=== PATIENT | female | born 1995 | race American Indian/Alaskan Native ===

== ENCOUNTER 2016-12-28 15:38 | Observation (INO) | payer MEDICAID ==
--- NOTE | 2016-12-28 16:29 | Ultrasound Report ---
Limited OB ultrasound. Findings: A single intrauterine is identified. No motion or cardiac activity is identified. The fetus is in cephalic presentation. Impression: These findings are consistent with demise. Comment: These findings were given by telephone to the nurseRadha in labor and delivery at 4:25 PM on January 28, 2017.
[2016-12-28] MEDS ORDERED: BRETHINE SUB-Q PRN (17:30)
[2016-12-28] MEDS ORDERED: STADOL IV PRN (17:30)
[2016-12-28] MEDS ORDERED: SUBLIMAZE IV PRN (17:30)
[2016-12-28] MEDS ORDERED: XYLOCAINE 2% INFILTRATI ONE (17:30)
[2016-12-28] MEDS ORDERED: MINERAL OIL PO PRN (17:30)
[2016-12-28] MEDS ORDERED: BRETHINE IVP PRN (17:30)
[2016-12-28] MEDS ORDERED: ePHEDrine SULFATE IV PRN ×2 (17:30→21:28)
--- NOTE | 2016-12-28 17:47 | History and Physical Report ---
History of Present Illness Date of examination: 12/28/16 Date of admission: 12/28/2016 Chief complaint: IUFD @32.5 weeks History of present illness: 21 yo at 32.5 weeks gestation presented to office today for routine OB care. Unable to auscultate FHT or locate FHB on ultrasound. care at [facility] since 7.4 weeks. Was co managed with [facility] for BMI> 39 and elevate BP. Course complicated by Rh negative status- rhogam @ 28 weeks at [facility] on 12/01 and +THC screen on 07/05/2016. 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 denies: smoking, alcohol abuse, prescription drug abuse , IV drug use - Obstetrical History Expected Date of Delivery: 02/17/17 Actual Gestation: 32 Week(s) 5 Day(s) : 2 Para: 1 Hx # Term Pregnancies: 1 Number of Pregnancies: 0 Spontaneous Abortions: 0 Induced : 0 Number of Living Children: 1 Medications and Allergies Allergies Allergy/AdvReac Type Severity Reaction Status Date / Time No Known Allergies Allergy Verified 08/15/13 00:29 Home Medications Medication Instructions Recorded Confirmed Last Taken Type Ibuprofen [Motrin] 800 mg PO QAM 08/15/13 08/15/13 08/14/13 History 800 Active Meds: Active Medications Butorphanol Tartrate (Stadol) 2 mg IV Q2H PRN PRN Reason: Pain , Severe (7-10) Ephedrine Sulfate (Ephedrine Sulfate) 10 mg IV Q2M PRN PRN Reason: Hypotension Stop: 12/28/16 17:35 Fentanyl (Sublimaze) 100 mcg IV Q2H PRN PRN Reason: Labor Pain Lactated Ringer's (Lactated Ringers) 1,000 mls @ 125 mls/hr IV DIRECT JEFFREY Oxytocin/Sodium Chloride (Pitocin/Ns 20 Unit/1000ml Drip) 20 units in 1,000 mls @ 125 mls/hr IV DIRECT JEFFREY Lidocaine (Xylocaine 2%) 20 ml INFILTRATI ONCE ONE Stop: 12/28/16 17:31 Mineral Oil (Mineral Oil) 30 ml PO QHS PRN PRN Reason: Constipation Misoprostol (Cytotec) 100 mcg VAGINAL Q4H JEFFREY Oxycodone/Acetaminophen (Percocet 5/325) 2 tab PO Q4H PRN PRN Reason: Pain, Moderate (4-6) Terbutaline Sulfate (Brethine) 0.25 mg SUB-Q ONCE PRN PRN Reason: Hyperstimulation/Hypertonicity Stop: 12/28/16 17:31 Terbutaline Sulfate (Brethine) 0.25 mg IVP ONCE PRN PRN Reason: Hyperstimulation/Hypertonicity Stop: 12/28/16 17:31 Review of Systems All systems: negative - Vital Signs Vital signs: Vital Signs Pulse BP 98 H 136/74 12/28/16 16:42 12/28/16 16:42 Temp Pulse Resp BP Pulse Ox 98.5 F 98 H 18 136/74 12/28/16 16:44 12/28/16 16:42 12/28/16 16:44 12/28/16 16:44 - Physical Exam Cardiovascular: Regular rate Lungs: Positive: Normal air movement Vagina: Positive: normal moisture Uterus: Positive: enlarged Extremities: Positive: normal Deep Tendon Reflex Grade: Normal +2 - Obstetrical FHR comments: IUFD Uterine Contraction Frequency (min): none Results All other labs normal. Assessment and Plan A: 32.5 week demise no contractions at this time P: Admit to L&D for IOL Contraction monitoring Cytotec induction Pain medication/Epidural as needed. [employer] bereavement box as available
[2016-12-28] MEDS: PERCOCET 5/325 PO PRN (17:59)
[2016-12-28] MEDS ORDERED: PITOCin/NS 20 UNIT/1000ML DRIP 20 UNITS/1,000 ML BAG IV SCH (18:00)
[2016-12-28] MEDS ORDERED: CYTOTEC VAGINAL SCH (18:00)
[2016-12-28 19:00] LABS: Hematocrit 30.1 % (30.3-42.9); Mean Corpuscular HGB Conc 33 % (30-34); Mean Corpuscular Hemoglobin 28 pg (28-32); Mean Corpuscular Volume 85 fl (79-97); Platelet Count 229 K/mm3 (140-440); Red Blood Count 3.54 M/mm3 (3.65-5.03); Red Cell Distribution Width 13.3 % (13.2-15.2); White Blood Count 10.2 K/mm3 (4.5-11.0)
[2016-12-28] MEDS: LACTATED RINGERS 1,000 ML IV SCH (21:19)
[2016-12-28] MEDS: CYTOTEC VG SCH (21:20)
[2016-12-28] MEDS ORDERED: ePHEDrine SULFATE ONE (21:24)
[2016-12-28] MEDS ORDERED: NARCAN 2 MG/2 ML IV PRN (21:28)
--- NOTE | 2016-12-28 21:28 | Anesthesia Consultation ---
Anesthesia Consult and Med Hx Date of service: 12/28/16 - Airway Anesthetic Teeth Evaluation: Good ROM Head & Neck: Adequate Mental/Hyoid Distance: Adequate Mallampati Class: Class II Intubation Access Assessment: Good - Pulmonary Exam CTA: Yes - Cardiac Exam Cardiac Exam: No Murmur - Pre-Operative Health Status ASA Pre-Surgery Classification: ASA2 Proposed Anesthetic Plan: Epidural - Pulmonary Hx Smoking: No Hx Asthma: No COPD: No Hx Pneumonia: No Hx Sleep Apnea: No - Cardiovascular System Hx Hypertension: Yes (off and on in beginning of preg but never dx) Hx Coronary Artery Disease: No Hx Heart Attack/AMI: No Hx Angina: No Hx Percutaneous Transluminal Coronary Angioplasty (PTCA): No Hx Pacemaker: No Hx Internal Defibrillator: No Hx Valvular Heart Disease: No Hx Heart Murmur: No Hx Peripheral Vascular Disease: No - Central Nervous System Hx Seizures: No CVA: Yes Hx Psychiatric Problems: Yes (anxiety) - Endocrine Hx Renal Disease: No Hx End Stage Renal Disease: No Hx Hypothyroidism: No Hx Hyperthyroidism: No - Hematic Hx Anemia: No Hx Sickle Cell Disease: No - Other Systems Hx Alcohol Use: No Hx Cancer: No
[2016-12-28] MEDS: fentaNYL-BUPIV 2 MCG/ML-0.125% 200 MCG/100 ML BAG EPIDURAL SCH (22:53)
[2016-12-29] MEDS: CYTOTEC VG SCH ×2 (01:30→05:07)
[2016-12-29 01:57] LABS: Urine Drugs of Abuse Note Disclamer
[2016-12-29] MEDS: LACTATED RINGERS 1,000 ML IV SCH (02:19)
[2016-12-29] MEDS ORDERED: PITOCin/NS 30 UNIT/500ML 30 UNITS/500 ML BAG IV SCH (08:00)
[2016-12-29] MEDS: fentaNYL-BUPIV 2 MCG/ML-0.125% 200 MCG/100 ML BAG EPIDURAL SCH (08:15)
[2016-12-29] MEDS ORDERED: XYLOCAINE MPF 2% ONE (09:33)
[2016-12-29] MEDS ORDERED: MOTRIN PO SCH (10:00)
--- NOTE | 2016-12-29 10:24 | Procedure Note ---
OB Delivery Note - Delivery Date of Delivery: 12/29/16 (0947) Surgeon: CHICO BREWER Estimated blood loss: 200cc - Vaginal Delivery position: OA Delivery induction: misoprostol Delivery augmentation: pitocin Delivery monitor: external uterine Route of delivery: Delivery placenta: spontaneous Delivery cord: 3 umbilical vessels Episiotomy: none Delivery laceration: none Delivery comments: Baby boy Sachi was delivered still on 12/29/2016 @ 0947 after found to be without heart tones in the office yesterday afternoon. Cord was clamped and cut , baby was swaddled and placed in mom's arms. Placenta was delivered intact with jack side presenting at 0958. Sachi weighted 4lb and 6oz with Apgars of 0/0. Mom was supported by sister and friend during the delivery and all were left spending time with baby. - A at 1 minute: 0 at 5 minutes: 0 Infant Gender: Male
[2016-12-29] MEDS ORDERED: BENADRYL PO PRN (10:25)
[2016-12-29] MEDS ORDERED: DULCOLAX PR PRN (10:25)
[2016-12-29] MEDS ORDERED: PHENERGAN PR PRN (10:25)
[2016-12-29] MEDS ORDERED: TYLENOL PO PRN (10:25)
[2016-12-29] MEDS ORDERED: NORCO 5/325 PO PRN (10:25)
[2016-12-29] MEDS ORDERED: ANUCORT-HC PR PRN (10:25)
[2016-12-29] MEDS ORDERED: ZOFRAN IV PRN (10:25)
[2016-12-29] MEDS ORDERED: DERMOPLAST TP PRN (10:25)
[2016-12-29] MEDS ORDERED: PHENERGAN PO PRN (10:25)
[2016-12-29] MEDS ORDERED: TUCKS PAD TP PRN (10:25)
[2016-12-29] MEDS ORDERED: MILK OF MAGNESIA PO PRN (10:25)
[2016-12-29] MEDS ORDERED: LANSINOH TP PRN (10:25)
[2016-12-29] MEDS ORDERED: SODIUM CHLORIDE FLUSH SYRINGE 10 ML IV NR (11:00)
[2016-12-29 23:12] LABS: Hematocrit 29.6 % (30.3-42.9); Hemoglobin 9.7 gm/dl (10.1-14.3)
[2016-12-30] MEDS: COLACE PO SCH ×3 (01:41→22:00)
[2016-12-30] MEDS: MOTRIN PO SCH ×4 (01:42→16:57)
[2016-12-30] MEDS: PRENATAL VITAMIN PO SCH (10:16)
[2016-12-30] MEDS: SENOKOT S PO SCH ×2 (12:00→22:00)
--- NOTE | 2016-12-30 13:05 | Progress Note ---
Subjective Date of service: 12/30/16 Interval history: No anesthetic related complaints. Epidural has been removed. Objective - Constitutional Vitals: Vital Signs - 12hr 12/30/16 12/30/16 12/30/16 01:42 04:50 08:00 Temperature 98.6 F 98.4 F Pulse Rate [ 71 66 Left Radial] Respiratory 18 20 18 Rate Blood Pressure 120/50 127/77 [Left Arm] 12/30/16 12:00 Temperature 98.6 F Pulse Rate [ 71 Left Radial] Respiratory 18 Rate Blood Pressure 138/86 [Left Arm] - Labs CBC & Chem 7: 12/29/16 22:42 Labs: Abnormal lab results 12/29/16 Range/Units 22:42 Hgb 9.7 L (10.1-14.3) gm/dl Hct 29.6 L (30.3-42.9) %
[2016-12-30] MEDS: PERCOCET 5/325 PO PRN (14:20)
[2016-12-31] MEDS: MOTRIN PO SCH (02:00)
[2016-12-31] MEDS: PERCOCET 5/325 PO PRN (10:58)
[2016-12-31] MEDS: COLACE PO SCH (11:00)
[2016-12-31] MEDS: PRENATAL VITAMIN PO SCH (11:00)
--- NOTE | 2016-12-31 13:55 | Progress Note ---
Assessment and Plan A. 21 y/o [id number] admitted for IOL s/p demise Co- managed with [facility] for maternal morbid obesity and HTN (no meds) Insufficient PNC and MJ use Rh Neg blood type: Rhogam not indicated b/c pt had dose < 12 wk ago Plans Nexplanon for contraception Normal pp course since del. Pt appears calm and without signs of anxiety or grief P DC home PT to f/u 6 wk pp: pt counseled to call for sooner apt if she feels concerned re physical or emotional coping Subjective - Subjective Date of service: 12/31/16 (PP Day #2: normal course) Patient reports: appetite normal, voiding normally, pain well controlled, ambulating normally : other ( demise: pt counseled re managment of milk coming in.) Objective - Vital Signs Latest vital signs: Vital Signs Temp Pulse Resp BP 12/31/16 11:55 98.6 F 83 16 139/86 12/31/16 08:07 98.3 F 72 16 151/95 12/30/16 23:55 98.4 F 80 18 146/86 12/30/16 20:50 98.0 F 80 18 128/74 12/30/16 16:41 97.8 F 74 18 133/82 Intake and Output 12/30/16 12/31/16 12/31/16 22:59 06:59 14:59 Intake Total 960 360 Balance 960 360 Intake: Oral 960 360 Other: Total, Intake Amount 240 120 # Voids Void 1 1 - Exam Breasts: Present: deferred Cardiovascular: Present: Regular rate Lungs: Present: Clear to auscultation Abdomen: Present: normal appearance, soft Uterus: Present: normal, firm, fundal height below umbilicus Extremities: Present: normal
--- NOTE | 2016-12-31 14:02 | Discharge Summary ---
Providers - Providers Date of Admission: 12/29/16 21:13 Date of discharge: 12/31/16 Attending physician: RAGHAV BUSBY MD Primary care physician: RAGHAV BUSBY MD Hospitalization Reason for admission: active labor, IUP - , induction of labor, IUFD Delivery: Episiotomy: none Laceration: none Other procedures: none complications: none baby: male ( demise at 32.5 wk) Condition at discharge: Good Disposition: DISCHARGED TO HOME OR SELFCARE Plan - Provider Discharge Summary Activity: no sex for 6 weeks, no heavy lifting 4 weeks, no strenuous exercise Diet: routine Instructions: routine Additional instructions: [] Smoking cessation referral if applicable(refer to patient education folder for contact #) [] Refer to [facility] Booklet Call your doctor immediately for: * Fever > 100.5 * Heavy vaginal bleeding ( >1 pad per hour) * Severe persistent headache * Shortness of breath * Reddened, hot, painful area to leg or breast * Drainage or odor from incision. * Keep incision clean and dry at all times and follow doctor's instructions regarding bathing/showering - Follow up plan Follow up: RAGHAV OCONNELL MD [Primary Care Provider] - NUSRAT BENDER CNM [Advanced Practice Nurse] - 6 Weeks
[2016-12-31 15:06] VITALS: BP 135/76
== END 2016-12-31 16:23 | disposition home or self-care (01) ==
LOC: TRG 15:38 → LD 15:40 → TRG 12-29 21:12 → LD 12-29 21:13 → OB 12-29 21:20
PROVIDERS: ADMIT Obstetrics & Gynecology; ATTEND Obstetrics & Gynecology
DX: O46.93 Antepartum hemorrhage, unspecified, third trimester (principal); O99.214 Obesity complicating childbirth; O16.3 Unspecified maternal hypertension, third trimester; O26.893 Other specified pregnancy related conditions, third trimester; R51 Headache; R06.02 Shortness of breath; Z3A.32 32 weeks gestation of pregnancy; Z83.3 Family history of diabetes mellitus; Z82.49 Family history of ischemic heart disease and other diseases of the circulatory system; Z81.8 Family history of other mental and behavioral disorders
CPT/HCPCS: 36415; 36430; 59200; 76815; 80307; 85014; 85018; 85027; 85461; 86850; 86870; 86900; 86901; 88307; 96360; 96361; G0378; J2590; J2790; J7120; J0595

== ENCOUNTER 2018-07-17 00:34 | Outpatient (CLI) | payer MEDICAID, OTHER ==
[2018-07-17 01:03] VITALS: BP 119/68
[2018-07-17 03:12] LABS: Basophils % (Auto) 0.2 % (0.0-1.8); Eosinophils % (Auto) 0.4 % (0.0-4.3); Hematocrit 32.2 % (30.3-42.9); Hemoglobin 10.7 gm/dl (10.1-14.3); Lymphocytes # (Auto) 2.7 K/mm3 (1.2-5.4); Lymphocytes % (Auto) 24.1 % (13.4-35.0); Mean Corpuscular HGB Conc 33 % (30-34); Mean Corpuscular Hemoglobin 28 pg (28-32); Mean Corpuscular Volume 85 fl (79-97); Monocytes # (Auto) 0.7 K/mm3 (0.0-0.8); Monocytes % (Auto) 6.4 % (0.0-7.3); Platelet Count 246 K/mm3 (140-440); Red Blood Count 3.78 M/mm3 (3.65-5.03); Red Cell Distribution Width 13.1 % (13.2-15.2)
[2018-07-17 03:37] LABS: Hepatitis C Virus Antibody Non-Reactive (NonReactive)
[2018-07-17 04:04] LABS: Rubella IgG Antibody Immune (Immune)
== END 2018-07-17 02:54 | disposition home or self-care (01) ==
LOC: TRG 00:34
PROVIDERS: ATTEND Obstetrics & Gynecology
DX: O47.03 False labor before 37 completed weeks of gestation, third trimester (principal); Z3A.33 33 weeks gestation of pregnancy
CPT/HCPCS: 36415; 59025; 85025; 85660; 86592; 86706; 86762; 86803; 87806

== ENCOUNTER 2020-09-19 01:51 | Outpatient (CLI) | payer MEDICAID ==
[2020-09-19 02:23] VITALS: BP 112/60
[2020-09-19] MEDS ORDERED: LACTATED RINGERS 1,000 ML IV ONE (02:34)
[2020-09-19 03:17] LABS: Bacteria,Urine 1+ /HPF (Negative); Bilirubin,Urine NEG (Negative); Blood,Urine MOD (Negative); Color,Urine Straw (Yellow); Mucus,Urine FEW /HPF; Urobilinogen,Urine < 2.0 mg/dL (<2.0)
== END 2020-09-19 05:55 | disposition home or self-care (01) ==
LOC: TRG 01:51 → APU 01:54 → TRG 05:55
PROVIDERS: ATTEND Obstetrics & Gynecology
DX: O26.892 Other specified pregnancy related conditions, second trimester (principal); O99.332 Smoking (tobacco) complicating pregnancy, second trimester; F17.200 Nicotine dependence, unspecified, uncomplicated; Z3A.27 27 weeks gestation of pregnancy
CPT/HCPCS: 59025; 81001; 96360; J7120

== ENCOUNTER 2020-10-28 12:02 | Inpatient (IN) | payer MEDICAID, OTHER ==
[2020-10-28 13:36] LABS: Hematocrit 32.6 % (30.3-42.9); Hemoglobin 10.9 gm/dl (10.1-14.3); Mean Corpuscular HGB Conc 34 % (30-34); Mean Corpuscular Volume 85 fl (79-97); Platelet Count 274 K/mm3 (140-440); Red Blood Count 3.84 M/mm3 (3.65-5.03)
[2020-10-28] MEDS ORDERED: TERBUTALINE 1 MG/1 ML INJ SUB-Q PRN (13:59)
[2020-10-28] MEDS ORDERED: BUTORPHANOL 2 MG/1 ML INJ IV PRN (13:59)
[2020-10-28] MEDS ORDERED: MINERAL OIL 30 ML ORAL LIQD PO PRN (13:59)
[2020-10-28] MEDS ORDERED: ONDANSETRON 4 MG/2 ML INJ IV PRN ×2 (13:59→19:52)
[2020-10-28] MEDS ORDERED: LIDOCAINE (2%) 20 MG/1 ML VIAL 20 ML MDV INFILTRATI ONE (13:59)
[2020-10-28] MEDS ORDERED: ePHEDrine SULFATE 50 MG/1 ML INJ IV PRN ×2 (13:59→17:51)
[2020-10-28] MEDS ORDERED: AMPICILLIN/NS 2 GM/100 ML 2 GM/100 ML BAG IV ONE (14:00)
[2020-10-28] MEDS ORDERED: OXYTOCIN DRIP 30 UNITS/500 ML BAG IV SCH ×3 (14:00→15:00)
[2020-10-28] MEDS ORDERED: LACTATED RINGERS 1,000 ML ONE (14:05)
[2020-10-28] MEDS: LACTATED RINGERS 1,000 ML IV SCH ×2 (14:14→17:52)
[2020-10-28 14:24] LABS: Bacteria,Urine 1+ /HPF (Negative); Bilirubin,Urine NEG (Negative); Blood,Urine SM (Negative); Color,Urine Yellow (Yellow); Hyaline Casts,Urine 1 /LPF; Mucus,Urine FEW /HPF; Protein,Urine <15 mg/dL mg/dL (Negative); Urobilinogen,Urine < 2.0 mg/dL (<2.0)
[2020-10-28 14:25] LABS: Amphetamine Screen,Urine PRESUMPTIVE NEGATIVE; Benzodiazepines Screen,Urine PRESUMPTIVE NEGATIVE; Cannabinoid Screen,Urine PRESUMPTIVE POSITIVE; Cocaine Screen,Urine PRESUMPTIVE NEGATIVE; Methadone Screen,Urine PRESUMPTIVE NEGATIVE; Opiate Screen,Urine PRESUMPTIVE NEGATIVE
--- NOTE | 2020-10-28 17:50 | Anesthesia Consultation ---
Anesthesia Consult and Med Hx Date of service: 10/28/20 - Airway Anesthetic Teeth Evaluation: Poor ROM Head & Neck: Adequate Mental/Hyoid Distance: Adequate Mallampati Class: Class II Intubation Access Assessment: Probably Good - Pulmonary Exam CTA: Yes - Cardiac Exam Cardiac Exam: RRR - Pre-Operative Health Status ASA Pre-Surgery Classification: ASA2 Proposed Anesthetic Plan: Epidural - Pulmonary Hx Smoking: Yes Hx Asthma: Yes (as a child) Hx Respiratory Symptoms: No SOB: No COPD: No Home Oxygen Therapy: No Hx Pneumonia: No Hx Sleep Apnea: No - Cardiovascular System Hx Hypertension: Yes (PIH 2012 & 2018) Hx Coronary Artery Disease: No Hx Heart Attack/AMI: No Hx Angina: No Hx Percutaneous Transluminal Coronary Angioplasty (PTCA): No Hx Cardia Arrhythmia: No Hx Pacemaker: No Hx Internal Defibrillator: No Hx Valvular Heart Disease: No Hx Heart Murmur: No Hx Peripheral Vascular Disease: No - Central Nervous System Hx Neuromuscular Disorder: No Hx Seizures: No CVA: Yes Hx Back Pain: No Hx Psychiatric Problems: No - Gastrointestinal Hx Ulcer: No Hx Gastroesophageal Reflux Disease: Yes - Endocrine Hx Renal Disease: No Hx End Stage Renal Disease: No Hx Cirrhosis: No Hx Liver Disease: No Hx Insulin Dependent Diabetes: No Hx Non-Insulin Dependent Diabetes: No Hx Thyroid Disease: No Hx Hypothyroidism: No Hx Hyperthyroidism: No - Hematic Hx Anemia: No Hx Sickle Cell Disease: No - Other Systems Hx Alcohol Use: No Hx Substance Use: No Hx Cancer: No Hx Obesity: Yes
[2020-10-28] MEDS ORDERED: NALOXONE 2 MG/2 ML INJ IV PRN (17:51)
[2020-10-28] MEDS ORDERED: fentaNYL-BUPIV 2 MCG/ML-0.125% 200 MCG/100 ML BAG EPIDURAL SCH (18:00)
[2020-10-28] MEDS ORDERED: AMPICILLIN/NS 1 GM/50 ML 1 GM/50 ML BAG IV ONE (18:00)
--- NOTE | 2020-10-28 18:08 | History and Physical Report ---
History of Present Illness Date of examination: 10/28/20 Date of admission: 10/28/20 13:59 Chief complaint: c/o uc with SROM @ 11:24 am. History of present illness: 24 y/o AA female @ 37.1 wks presented to [facility] ob triage with c/o uc and srom at 11:24 this am. Pt states she [facility] but didn't go back. She has a medical hx of asthma. Last attack was "years ago". OB hx of PIH in 2012 and 2018 and reports 1 stillbirth @ 8 mos in 2017. Chlamydia tx'd in 2012. Surgical hx of tonsillectomy and adenoidectomy. Family hx of DM. GBS is unknown. No records are available. Pt was assessed and admitted to L&D for delivery. Past History Past Medical History: asthma, hypertension, other (stillbirth @8 mos) Past Surgical History: tonsillectomy, other (adenoidectomy) [facility] [employer] History: chlamydia Family/Genetic History: diabetes Social history: single - Obstetrical History Expected Date of Delivery: 11/17/20 Actual Gestation: 37 Week(s) 1 Day(s) : 5 Para: 2 Hx # Term Pregnancies: 2 Number of Pregnancies: 1 Spontaneous Abortions: 1 Induced : 0 Number of Living Children: 2 Medications and Allergies Allergies Allergy/AdvReac Type Severity Reaction Status Date / Time No Known Allergies Allergy Verified 08/24/18 21:39 Home Medications Medication Instructions Recorded Confirmed Last Taken Type No Known Home Medications [No 10/28/20 10/28/20 Unknown History Reported Home Medications] Active Meds: Active Medications Butorphanol Tartrate (Butorphanol 2 Mg/1 Ml Inj) 2 mg IV Q2H PRN PRN Reason: Pain , Severe (7-10) Ephedrine Sulfate (Ephedrine Sulfate 50 Mg/1 Ml Inj) 10 mg IV Q2M PRN PRN Reason: Hypotension Ephedrine Sulfate (Ephedrine Sulfate 50 Mg/1 Ml Inj) 10 mg IV Q2M PRN PRN Reason: Hypotension Ampicillin Sodium (Ampicillin/Ns 1 Gm/50 Ml) 1 gm in 50 mls @ 100 mls/hr IV Q4HR ONE; Protocol Stop: 10/28/20 18:29 Lactated Ringer's (Lactated Ringers) 1,000 mls @ 125 mls/hr IV DIRECT JEFFREY Last Admin: 10/28/20 17:52 Dose: 999 mls/hr Documented by: Oxytocin/Sodium Chloride (Pitocin/Ns 30 Unit/500ml) 30 units in 500 mls @ 40 mls/hr IV TITR JEFFREY; Protocol Oxytocin/Sodium Chloride (Pitocin/Ns 30 Unit/500ml) 30 units in 500 mls @ 2 mls/hr IV TITR JEFFREY; Protocol Last Titration: 10/28/20 17:15 Dose: 8 mls/hr, 8 mls/hr Documented by: Fentanyl/Bupivacaine/Sodium Chlor (Fentanyl-Bupiv 2 Mcg/Ml-0.125%) 200 mcg in 100 mls @ 12 mls/hr EPIDURAL TITR JEFFREY; Protocol Mineral Oil (Mineral Oil 30 Ml Oral Liqd) 30 ml PO QHS PRN PRN Reason: Constipation Naloxone HCl (Naloxone 2 Mg/2 Ml Inj) 0.2 mg IV Q5M PRN PRN Reason: Respiratory sedation Ondansetron HCl (Ondansetron 4 Mg/2 Ml Inj) 4 mg IV Q8H PRN PRN Reason: Nausea And Vomiting Terbutaline Sulfate (Terbutaline 1 Mg/1 Ml Inj) 0.25 mg SUB-Q ONCE PRN PRN Reason: Hyperstimulation/Hypertonicity Review of Systems All systems: negative Eyes: deferred Ears, nose, mouth and throat: deferred Breasts: normal Genitourinary: normal appearance Rectal Exam: deferred - Vital Signs Vital signs: Vital Signs Pulse Pulse Ox 90 100 10/28/20 12:29 10/28/20 12:29 Temp Pulse Resp BP Pulse Ox 99.1 F 78 18 128/87 98 10/28/20 16:30 10/28/20 14:03 10/28/20 16:30 10/28/20 14:03 10/28/20 13:44 - Physical Exam Breasts: Positive: normal Abdomen: Positive: normal appearance, soft, normal bowel sounds (gravid), other Genitourinary (Female): Positive: normal external genitalia, normal perenium Vulva: both: normal Vagina: Positive: normal moisture Uterus: Positive: enlarged, normal contour, other (gravid) Adnexa: both: normal Anus/Rectum: Positive: normal perianal skin Extremities: Positive: normal - Obstetrical FHR: auscultation normal, category 1 Uterine Contraction Monitor Mode: External Cervical Dilatation: 5 Cervical Effacement Percentage: 75 station: -3 Uterine Contraction Frequency (min): q2-3 Uterine Contraction Pattern: Regular Uterine Tone Measurement Phase: Resting Uterine Contraction Intensity: Mild Results Result Diagrams: 10/28/20 12:40 Abnormal lab results 10/28/20 10/28/20 Range/Units 12:40 Unknown RDW 13.0 L (13.2-15.2) % Urine WBC (Auto) 137.0 H (0.0-6.0) /HPF All other labs normal. Assessment and Plan A: IUP@ 37.1 wks with srom cl fluid No care + UTI O neg Hx of stillbirth at 8 mos Asthma GBS unknown P: Admit to L&D GBS & UTI prophylaxis Offer Rhogam pp Anticipate
[2020-10-28] MEDS ORDERED: miSOPROStol 200 MCG TAB ONE (19:03)
[2020-10-28] MEDS ORDERED: miSOPROStol 200 MCG TAB PR ONE (19:07)
--- NOTE | 2020-10-28 19:42 | Procedure Note ---
OB Delivery Note - Delivery Date of Delivery: 10/28/20 Surgeon: KASANDRA SMITH Estimated blood loss: other (150cc) - Vaginal Delivery presentation: vertex Delivery position: OA Intrapartum events: none Delivery induction: none Delivery augmentation: pitocin Delivery monitor: external FHT, external uterine Route of delivery: Delivery placenta: spontaneous Delivery cord: 3 umbilical vessels Episiotomy: none Delivery laceration: none Anesthesia: epidural Delivery comments: Called to for delivery. SVE 10/100%/+1 and pt was pushing. of a viable live male infant in OA position. Spontaneous delivery of head and shoulders. Immediately after delivery was placed on mom's chest for skin to skin bonding while NICU nurse dried and stimulated baby. Delayed cord clamping x 90 sec then cord was clamped x 2 and FOB was allowed to cut the cord. Baby was then taken to the infant warmer by NICU nurse. 8/9. Spontaneous delivery of intact placenta with CVX3. Fundus boggy off an on @ U2 with occ trickle of bright red vag blood. Fundus remained firm and Homeostasis was achieved with fundal massage, IV Pitocin and 800 mcg of Cytotec pr. EBL 150cc. FW 2836. Mom and baby left in stable condition with L&D nurse. Delivery by Margie NEWMAN/Kasandra Smith CNM - Infant A at 1 minute: 8 at 5 minutes: 9 (FW [id number]) Gender: Male
[2020-10-28] MEDS ORDERED: LANOLIN/ZINC/DIMETHICONE (LANSINOH) 7 GM TP PRN (19:52)
[2020-10-28] MEDS ORDERED: PROMETHAZINE 25 MG TAB PO PRN (19:52)
[2020-10-28] MEDS ORDERED: PROMETHAZINE 25 MG RECT SUPP PR PRN (19:52)
[2020-10-28] MEDS ORDERED: WITCH HAZEL/ GLYCERIN PAD TP PRN (19:52)
[2020-10-28] MEDS ORDERED: diphenhydrAMINE 25 MG CAP PO PRN (19:52)
[2020-10-28] MEDS ORDERED: MAGNESIUM HYDROXIDE (MOM) ORAL LIQD UDC PO PRN (19:52)
--- NOTE | 2020-10-28 20:04 | Post Anesthesia Evaluation ---
- Post Anesthesia Evaluation Patient Participated: Yes Airway Patent: Yes Stable Respiratory Function: Yes Nausea/Vomiting: No Temp > 96.8F: Yes Pain Manageable: Yes Adequeate Hydration: Yes Anesthesia Complications: No Block Receding Appropriately: Yes Patient on Ventilator: No
--- NOTE | 2020-10-28 20:04 | Progress Note ---
Labor Epidural - Labor Epidural Start Time: 18:00 Stop Time: 18:16 Performed by:: CHARU ROMERO Procedure: Patient is requesting a laboring epidural for laboring pain. Patient IDed, H&P reviewed, all questions and concerns were answered, and consent was signed. Timeout was performed at bedside. Patient in sitting position. Sterile prep and drape was performed. [3] ml of 1% lidocaine skin wheal at L[3]- L [4]. 18- gauge Tuohy epidural needle was advanced to loss of resistance with air technique. Negative CSF negative blood. Epidural catheter advanced to [12] centimeters. [NEGATIVE] Aspiration [NEGATIVE] test dose. Sterile dressing applied. Patient tolerated procedure.
[2020-10-28] MEDS: NITROFURANTOIN MONOHYD/M-CRYST 100 MG CAP PO SCH (21:29)
[2020-10-28] MEDS: IBUPROFEN 600 MG TAB PO SCH (21:30)
[2020-10-29] MEDS: IBUPROFEN 600 MG TAB PO SCH ×4 (03:45→22:52)
[2020-10-29 07:44] LABS: Hematocrit 27.6 % (30.3-42.9); Hemoglobin 9.2 gm/dl (10.1-14.3)
[2020-10-29] MEDS: NITROFURANTOIN MONOHYD/M-CRYST 100 MG CAP PO SCH ×2 (10:15→22:53)
--- NOTE | 2020-10-29 11:40 | Discharge Summary ---
Providers - Providers Date of Admission: 10/28/20 13:59 Date of discharge: 10/30/20 Attending physician: ARF BARRIOS MD 10/29/20 07:19 Consult to Case Management [CONS] Routine Services Needed at Discharge: [employer] Controller Notified:: no Additional Physician Instructions: positive marijuana Primary care physician: SAMRA REEVES Hospitalization Reason for admission: rupture of membranes Delivery: Episiotomy: none Laceration: none Other procedures: none complications: none Discharge diagnosis: IUP at term delivered [place] baby: male Hospital course: See admission H & P; OB delivery summary and PP progress notes Condition at discharge: Good Disposition: [id number] TO HOME OR SELFCARE - Discharge Diagnoses (1) Status post normal vaginal delivery Status: Acute (2) Anemia Status: Acute Qualifiers: Anemia type: other cause Other causes of anemia: acute posthemorrhagic Qualified Code(s): D62 - Acute posthemorrhagic anemia Comment: Asymptomatic Plan - Provider Discharge Summary Activity: routine, no sex for 6 weeks, no heavy lifting 4 weeks, no strenuous exercise Diet: other (Iron rich diet) Instructions: routine Additional instructions: [] Smoking cessation referral if applicable(refer to patient education folder for contact #) [] Refer to [facility] Booklet Call your doctor immediately for: * Fever > 100.5 * Heavy vaginal bleeding ( >1 pad per hour) * Severe persistent headache * Shortness of breath * Reddened, hot, painful area to leg or breast - Follow up plan Follow up: SAMRA REEVES MD [Primary Care Provider] - 6 Weeks
[2020-10-30] MEDS: IBUPROFEN 600 MG TAB PO SCH ×3 (01:16→12:06)
[2020-10-30] MEDS: NITROFURANTOIN MONOHYD/M-CRYST 100 MG CAP PO SCH (12:07)
[2020-10-30 17:31] VITALS: BP 130/82
== END 2020-10-30 17:45 | disposition home or self-care (01) | DRG 806 ==
LOC: TRG 12:02 → APU 12:03 → LD 14:06 → TRG 14:38 → LD 14:46 → OB 21:00
PROVIDERS: ADMIT Obstetrics & Gynecology; ATTEND Obstetrics & Gynecology
PROC: 3E0R3BZ Introduction of Anesthetic Agent into Spinal Canal, Percutaneous Approach (ICD-10-PCS; 2020-10-28)
PROC: 00HU33Z Insertion of Infusion Device into Spinal Canal, Percutaneous Approach (ICD-10-PCS; 2020-10-28)
PROC: 30233S1 Transfusion of Nonautologous Globulin into Peripheral Vein, Percutaneous Approach (ICD-10-PCS; principal; 2020-10-29)
PROC: 10E0XZZ Delivery of Products of Conception, External Approach (ICD-10-PCS; 2020-10-29)
DX: O99.52 Diseases of the respiratory system complicating childbirth (principal); D62 Acute posthemorrhagic anemia; Z37.0 Single live birth; O10.92 Unspecified pre-existing hypertension complicating childbirth; Z20.822 Contact with and (suspected) exposure to COVID-19; O99.324 Drug use complicating childbirth; F12.90 Cannabis use, unspecified, uncomplicated
CPT/HCPCS: 36415; 80307; 81001; 85014; 85018; 85027; 85461; 86592; 86706; 86762; 86850; 86900; 86901; 87806; G0378; J0290; J2590; J2790; J7120; U0003